=== PATIENT | female | born 1960 | race Caucasian/White ===

== ENCOUNTER 2018-12-14 11:35 | Emergency (ER) | payer OTHER ==
[~2018-12-14] VITALS: Ht 170.2 cm; Wt 56.7 kg
[2018-12-14 12:00] VITALS: BP 113/79
--- NOTE | 2018-12-14 12:22 | PHYS DOC ---
Past History Smoking: Cigarettes Adult General Chief Complaint Chief Complaint: FOOT INJURY PAIN HPI HPI Patient is a 58 year old female who presents with complaining of left foot pain. Patient states she had an accidental fall yesterday and twisted her left fourth with edema and ecchymoses. Patient states she took ibuprofen and does not have any pain with rest but complains of 4/10 pain with bearing weight. Patient denies focal neuro deficit and other injuries. Review of Systems Review of Systems Constitutional: Denies fever or chills [] Eyes: Denies change in visual acuity, redness, or eye pain [] HENT: Denies nasal congestion or sore throat [] Respiratory: Denies cough or shortness of breath [] Cardiovascular: No additional information not addressed in HPI [] GI: Denies abdominal pain, nausea, vomiting, bloody stools or diarrhea [] : Denies dysuria or hematuria [] Musculoskeletal: Denies back pain, reports joint pain [] Integument: Denies rash or skin lesions [] Neurologic: Denies headache, focal weakness or sensory changes [] Endocrine: Denies polyuria or polydipsia [] All other systems were reviewed and found to be within normal limits, except as documented in this note. Physical Exam Physical Exam Constitutional: Well developed, well nourished, no acute distress, non-toxic appearance. [] HENT: Normocephalic, atraumatic Eyes: PERRLA, EOMI, conjunctiva normal, no discharge. [] Neck: Normal range of motion, no tenderness, supple, no stridor. [] Cardiovascular:Heart rate regular rhythm, no murmur [] Lungs & Thorax: Bilateral breath sounds clear to auscultation [] Extremities: Left foot with mild edema and ecchymosis in proximal of fourth and fifth metatarsal area with mild tenderness, no neurovascular deficit. Neurologic: Alert and oriented X 3, normal motor function, normal sensory function, no focal deficits noted. [] EKG EKG [] Radiology/Procedures Radiology/Procedures [address] [address] IMAGING REPORT Signed PATIENT: JOHN PRICE ACCOUNT: [id number] : 1960 LOCATION: ER AGE: 58 SEX: F EXAM STATUS: REG ER ORD. PHYSICIAN: RACHEAL ALVARADO MD REASON: injury PROCEDURE: FOOT LEFT 3V Left foot 3 views. History left foot pain, fall, injury 3 views were taken of the left foot. There is an oblique nondisplaced fracture through the mid left fifth metatarsal. No other fracture is noted. IMPRESSION: 1. Nondisplaced fracture left fifth metatarsal. Electronically signed by: Ty Peter MD (12/14/2018 12:31 PM) [facility] DICTATED AND SIGNED BY: TY PETER MD DATE: 12/14/18 1231 CC: RACHEAL ALVARADO MD; MARTHA FRENCH ~ Course & Med Decision Making Course & Med Decision Making Pertinent Imaging studies reviewed. (See chart for details) Evaluation of patient in ER showed 58-year-old female patient with injury to left foot. Patient had edema and erythema of left proximal metatarsal with nondisplaced fracture of fifth metatarsal in x-ray. Plan to apply short leg splint and instruction to follow up with telecommunications professional orthopedic physician. Patient already has crutches. Patient doesn't want to have any pain medication for home. Dragon Disclaimer Dragon Disclaimer This electronic medical record was generated, in whole or in part, using a voice recognition dictation system. Departure Departure: Impression: Primary Impression: Closed nondisplaced fracture of fifth left metatarsal bone Additional Impressions: Tobacco abuse Tobacco abuse counseling Disposition: HOME, SELF-CARE (@1300) Condition: IMPROVED Referrals: MARTHA FRENCH (PCP) Patient Instructions: Metatarsal Fracture, Undisplaced Additional Instructions: Follow-up with Dr. Barboza telecommunications professional orthopedic physician, call [phone] to make an appointment in 2 or 3 days Use of home crutches Take [id number] ibuprofen as needed for pain Follow-up with your primary care physician in 3-5 days Return to ER if not getting better Problem Qualifiers Primary Impression: Closed nondisplaced fracture of fifth left metatarsal bone Encounter type: initial encounter Qualified Codes: S92.355A - Nondisplaced fracture of fifth metatarsal bone, left foot, initial encounter for closed fracture RACHEAL ALVARADO MD Dec 14, 2018 12:22
--- NOTE | 2018-12-14 12:34 | RAD ---
Left foot 3 views. History left foot pain, fall, injury 3 views were taken of the left foot. There is an oblique nondisplaced fracture through the mid left fifth metatarsal. No other fracture is noted. IMPRESSION: 1. Nondisplaced fracture left fifth metatarsal. Electronically signed by: Ty Peter MD (12/14/2018 12:31 PM) [facility]
== END 2018-12-14 13:29 | disposition home or self-care (01) ==
LOC: ER 11:35
DX: S92.355A Nondisplaced fracture of fifth metatarsal bone, left foot, initial encounter for closed fracture (principal); F17.210 Nicotine dependence, cigarettes, uncomplicated; W18.39XA Other fall on same level, initial encounter; Y93.89 Activity, other specified; Y92.89 Other specified places as the place of occurrence of the external cause; Y99.8 Other external cause status
CPT/HCPCS: 29125; 29515; 73630; 99284

== ENCOUNTER → 2021-06-26 | Outpatient (CLI) | payer OTHER ==
--- NOTE | 2021-06-26 15:28 | RAD ---
MG 2D BILAT SCREENING 06/26/2021 11:05 AM INDICATION: Asymptomatic screening mammogram. COMPARISON: 11/12/2016 TECHNIQUE: 2D CC and MLO projections were obtained of each breast. FINDINGS: Breast density: Category D: The breasts are extremely dense, which lowers the sensitivity of mammogra phy. Right breast: There are no suspicious microcalcifications, masses or areas of architectural distortio n. Left breast: There are no suspicious microcalcifications, masses or areas of architectural distortion . Bilateral mammogram is compared to prior examinations appears unchanged. IMPRESSION: Negative bilateral mammogram. BI-RADS category: 1; Negative Recommendations: Recommend annual screening mammography in one year. Electronically signed by: Treasure Summers MD (06/26/2021 3:26 PM) [id number]
== END ==
LOC: MAMMO 10:56
PROVIDERS: ATTEND Physician Assistant Medical
DX: Z12.31 Encounter for screening mammogram for malignant neoplasm of breast (principal)
CPT/HCPCS: 77067